=== PATIENT | male | born 1980 | race Caucasian/White ===

== ENCOUNTER 2025-05-08 20:51 | Emergency (ER) | payer OTHER, SELFPAY ==
--- NOTE | ~2025-05-08 | CT_ITS ---
CLINICAL HISTORY: rectal pain, nausea, fevers CT abdomen and pelvis with contrast Comparison: None Findings: No consolidation or effusion. The gallbladder and solid organs are within normal limits. No renal stones. No bowel obstruction, pneumoperitoneum, or pneumatosis. Pelvic contents unremarkable. Normal appendix. No acute fracture. IMPRESSION: No acute findings. This document has been electronically signed by: Sky Salazar MD on 05/09/2025 00:59:22
[2025-05-08 20:55] VITALS: BP 140/79; PULSE 110; RESP 20; TEMP 38.5; O2SAT 96; BMI 44.9
[2025-05-08] MEDS: Acetaminophen 325 MG TABLET 975 MG PO (21:07)
[2025-05-08 21:49] LABS: MANUAL DIFF FLAG NO
[2025-05-08 21:50] LABS: Basophils Absolute Auto 0.1 X10*3/uL (0.0-0.2); Basophils Percent Auto 0.4 % (0-2); Eosinophils Absolute Auto 0.2 X10*3/uL (0.0-0.4); Eosinophils Percent Auto 1.9 % (0-4); Hematocrit 36.7 % (42.0-52.0); Hemoglobin 12.8 g/dl (14.0-18.0); Imm Gran Abs Auto 0.05 X10*3/uL (0.00-0.03); Imm Gran Pct Auto 0.4 % (0.0-0.4); Lymphocytes Absolute Auto 1.5 X10*3/uL (1.2-4.9); Lymphocytes Percent Auto 12.3 % (20-40); Mean Corpuscular HGB Conc 34.9 g/dl (31.0-36.0); Mean Corpuscular Volume 83.2 fL (80.0-98.0); Monocytes Absolute Auto 0.9 X10*3/uL (0.1-1.2); Monocytes Percent Auto 7.8 % (2-11); Neutrophils Absolute Auto 9.2 x10*3/uL (2.0-8.3); Neutrophils Percent Auto 77.2 % (45-73); Platelet Count 276 X10*3/uL (160-400); Red Blood Count 4.41 X10*6/uL (4.60-5.80); Red Cell Distribution Width 12.4 % (11.0-16.0); White Blood Count 11.9 X10*3/uL (4.8-10.8)
--- NOTE | 2025-05-08 21:55 | ED.SKABFB ---
HPI - Skin/Abscess/Foreign Bdy General Chief complaint: Skin/Abscess/Foreign Body Stated complaint: fever, cyst on buttocks Time Seen by Provider: 05/08/25 21:55 Source: patient Mode of arrival: ambulatory Limitations: no limitations History of Present Illness ED Provider: arnie livingston clinical nursing manager HPI narrative: Patient is a 45-year-old male who presents emergency department for evaluation. He reports over the past 2 weeks he has been experiencing pain to his rectum, he feels a lump to the right side of the rectum that has been increasing in size. He states that for many years he has suffered from frequent soft bowel movements with intermittent dull abdominal pain and nausea. Has brought this up to his primary care doctor, he has an appointment scheduled for colonoscopy in June of 2025. However, he reports a few weeks ago he did become constipated for the very first time. He thought he may have developed a hemorrhoid so he started using hemorrhoid creams and using [id number] tucks pads without much improvement. He went to his primary care doctor's office earlier this week, denies having any visual inspection or physical examination of the area but was advised to continue taking the hemorrhoid cream. He is now experiencing fevers and increasing pain to the area. He states at times when he has wiped he has noticed a yellow drainage. Related Data Allergies Allergy/AdvReac Type Severity Reaction Status Date / Time [place] nut Allergy Cough Verified 05/08/25 21:03 lisinopril Allergy Hives Verified 05/08/25 21:03 Review of Systems Review of Systems: Yes all other systems are reviewed and are negative PMFSH Past Medical History Attestation statement: The following information was validated with the patient. Source: old records reviewed Social History Social History Smoked in Last 30 Days: No Use of substances other than those prescribed or required for medical reasons: No Advance Directives: No Advance Directives Information Provided: Yes Physical Exam Vital Signs: Vital Signs: Last Vital Signs Temp 98.8 F 05/08/25 22:38 Pulse 93 05/08/25 22:38 Resp 14 05/08/25 23:27 BP 126/70 05/09/25 01:20 Pulse Ox 97 05/08/25 22:38 O2 Del Method Room Air 05/08/25 22:38 BMI result Body Mass Index 44.9 Appearance: Alert.?Oriented to person, place and time. No acute distress.?Normal affect. Eyes: Pupils equal, round and reactive to light.? ENT: Pharynx normal.?? Neck: Normal inspection.? Neck supple.?? CVS: Heart sounds normal. Normal heart rate and rhythm.? Pulses normal.?? Respiratory: No respiratory distress.? Lung sounds clear to auscultation bilaterally?? Abdomen: Soft and non-tender. Normoactive bowel sounds. ? Rectal: Performed with public works supervisor ED RN Heidy - appreciate any hemorrhoid on examination, I do not appreciate any discrete abscess, there is tenderness upon palpation of the right perirectal region with some palpable areas of induration. Skin: Skin warm and dry.? Normal skin color.? Extremities: No lower extremity edema.? Neuro: Moves all extremities spontaneously. Sensation intact bilaterally. CN II-XII intact. No focal neuro deficits. Ambulates with normal steady gait. Course Reevaluation(s) Reevaluation #1: CT of the abdomen and pelvis without acute pathology. I did discuss this with my attending Dr. Wooten who examined the patient as well, given the area of induration I am going to treat for cellulitis, suspect that he may have previously had an abscess as he did endorse some yellow drainage from the area. Will treat with Augmentin and doxycycline. Given strict return precautions. All questions have been answered. Stable for discharge Medications Administered Discontinued Medications Generic Name Dose Route Start Last Admin Trade Name Freq PRN Reason Stop Dose Admin Acetaminophen 975 mg 05/08/25 21:05 05/08/25 21:07 Acetaminophen 325 Mg Tablet PO 05/08/25 21:06 975 mg ONCE ONE Administration Sodium Chloride 1,983 mls @ 1,983 mls/hr 05/08/25 22:04 05/09/25 01:20 Ns IV 05/08/25 23:03 Infused .Q1H STA Infusion Levofloxacin 500 mg in 100 mls @ 100 mls/hr 05/08/25 22:04 05/08/25 23:16 Levaquin IV 05/08/25 23:03 Infused ONCE ONE Infusion Metronidazole 500 mg in 100 mls @ 100 mls/hr 05/08/25 22:04 05/09/25 00:41 Flagyl IV 05/08/25 23:03 Infused ONCE ONE Infusion Iohexol 100 ml 05/09/25 00:17 05/09/25 00:18 Iohexol 350 Mg/Ml 100 Ml Infus..Btl IV 05/09/25 00:18 100 ml ONCE ONE Administration Morphine Sulfate 4 mg 05/08/25 23:18 05/08/25 23:27 Morphine Sulfate 4 Mg/Ml Cartridge IVPUSH 05/08/25 23:19 4 mg ONCE ONE Administration Protocol Ondansetron HCl 4 mg 05/08/25 23:18 05/08/25 23:27 Ondansetron Hcl 4 Mg/2 Ml Vial IVPUSH 05/08/25 23:19 4 mg ONCE ONE Administration Medical Decision Making Medical Decision Making [facility] Narrative: 21:58 I assumed care of patient at this time, sepsis alert was called secondary to fever tachycardia and suspected infection involving the rectal region. Sepsis fluid bolus ordered based on ideal body weight due to obesity, covered with levofloxacin and metronidazole in addition to acetaminophen for fever. Patient is a 45 old male with past medical history of diabetes, hypertension, sciatica presenting for evaluation of rectal pain as per HPI. At the time my evaluation there is no discrete abscess that is identified there is areas of induration and tenderness upon palpation of the perirectal region, no appreciable hemorrhoid on examination. He has a exquisite pain and tenderness. Planning on obtaining CT of the abdomen and pelvis for further evaluation. Serum labs revealing leukocytosis of 11,900, normocytic anemia that does not meet transfusion criteria, no thrombocytopenia. No electrolyte derangement. No ROEL. Non-anion gap hyperglycemia with a random glucose of 189. No lactic acidosis. LFTs are unremarkable. Differential Diagnosis Differential Diagnoses: The differential diagnosis associated with the presentation includes (perirectal abscess, colitis, prostatitis, hemorrhoid, cellulitis) Admission/Observation Consideration of admission/observation: Escalation of care including admission/observation considered Lab Data MDM Lab Attestation statement: I reviewed the patient's lab results. (See narrative above) 05/08/25 21:34 05/08/25 21:34 Labs: Lab Results 05/08/25 05/09/25 Range/Units 21:34 00:26 WBC 11.9 H (4.8-10.8) X10*3/uL RBC 4.41 L (4.60-5.80) X10*6/uL Hgb 12.8 L (14.0-18.0) g/dl Hct 36.7 L (42.0-52.0) % MCV 83.2 (80.0-98.0) fL MCH 29.0 (27.0-33.0) pg MCHC 34.9 (31.0-36.0) g/dl RDW 12.4 (11.0-16.0) % Plt Count 276 (160-400) X10*3/uL MPV 9.0 L (9.4-12.4) fL Immature Gran % (Auto) 0.4 (0.0-0.4) % Neut % (Auto) 77.2 H (45-73) % Lymph % (Auto) 12.3 L (20-40) % [place] % (Auto) 7.8 (2-11) % Eos % (Auto) 1.9 (0-4) % Baso % (Auto) 0.4 (0-2) % Lymph # (Auto) 1.5 (1.2-4.9) X10*3/uL [place] # (Auto) 0.9 (0.1-1.2) X10*3/uL Eos # (Auto) 0.2 (0.0-0.4) X10*3/uL Baso # (Auto) 0.1 (0.0-0.2) X10*3/uL Abs Immat Gran (auto) 0.05 H (0.00-0.03) X10*3/uL Absolute Neuts (auto) 9.2 H (2.0-8.3) x10*3/uL Absolute Nucleated RBC 0.000 (0.0-0.012) X10*3/uL Nucleated RBC % (auto) 0.0 (0.0-0.2) /100WBC PT 12.2 (10.9-12.4) SEC INR 1.1 (0.9-1.1) APTT 32.3 (26.0-36.8) SEC Sodium 138 (135-145) mmol/L Potassium 3.8 (3.3-5.1) mmol/L Chloride 106 (96-108) mmol/L Carbon Dioxide 24 (22-29) mmol/L Anion Gap 12 (12-20) BUN 12 (9-16) mg/dL Creatinine 0.99 (0.5-1.4) mg/dL Estim Creat Clear Calc 123.4 Estimated GFR > 60 Random Glucose 189 H (60-115) mg/dL Lactic Acid 1.5 (0.5-2.0) mmol/L Calcium 9.0 (8.4-10.2) mg/dL Total Bilirubin 0.5 (0.0-1.0) mg/dL Direct Bilirubin 0.2 (0.0-0.5) mg/dL AST 16 (5-37) U/L ALT 16 (0-40) U/L Alkaline Phosphatase 67 (39-117) U/L Total Protein 7.6 (6.5-8.0) g/dL Albumin 4.5 (3.5-5.0) g/dL Urine Color Yellow Urine Appearance Clear Urine pH 5.5 (5.0-9.0) Ur Specific [place] 1.020 (1.005-1.025) Urine Protein Negative (Neg-Trace) mg/dL Urine Glucose (UA) Negative (Negative) mg/dL Urine Ketones Negative (Negative) mg/dL Urine Blood Negative (Negative) Urine Nitrite Negative (Negative) Ur Leukocyte Esterase Negative (Negative) Radiology Impression Discussion of test interpretation with radiology: I have reviewed the radiologist's reading. Independent Historian Clinical information obtained from an independent historian. History obtained from or confirmed by: Parent External Record Review External record reviewed: Outpatient record Chronic Conditions Patient?s care impacted by: Other (See narrative above) Discharge Plan Discharge Clinical Impression: Cellulitis Patient Disposition: Home, Self-Care Instructions: Cellulitis (ED) Additional Instructions: As discussed, with a history or describing there is concern that there may have been an abscess present given the yellow drainage, you are now left with cellulitis which is an infection of the skin surrounding this area. The CT scan did not show abnormal findings. You are being discharged home with 2 prescriptions for antibiotics Augmentin as well as doxycycline. Please complete the entire course, do not skip any doses even if you begin to feel better. While taking antibiotics, please include probiotics that can be found over the counter or yogurt in your diet. If symptoms of a yeast infection or diarrhea occur, please seek evaluation. On doxycycline, do not take pills immediately before going to bed and swallow pills with plenty of water. Avoid direct sunlight, iron, antacids, and Pepto Bismol. Call your provider if you develop new ringing in your ears, new problems hearing, dizziness, difficulty swallowing, rash, abdominal discomfort, nausea, or diarrhea.? You can take ibuprofen 200 mg, 3 tablets (600mg) every 6-8 hours as needed for pain, in addition to Tylenol 500 mg, 2 tablets (1,000mg) every 4-6 hours as needed for pain, but not to exceed 3 doses daily (3,000mg).? Follow-up with your primary care doctor. Return to emergency department any new or worsening symptoms or concerns. Print Language: Ma[place]
[2025-05-08 21:56] LABS: INTERNATIONAL NORM RATIO 1.1 (0.9-1.1); Prothrombin Time 12.2 SEC (10.9-12.4)
[2025-05-08 21:58] LABS: Partial Thromboplastin Time 32.3 SEC (26.0-36.8)
[2025-05-08 22:05] LABS: Alanine Aminotransferase 16 U/L (0-40); Albumin Level 4.5 g/dL (3.5-5.0); Alkaline Phosphatase 67 U/L (39-117); Anion Gap 12 (12-20); Aspartate Amino Transferase 16 U/L (5-37); Bilirubin Direct 0.2 mg/dL (0.0-0.5); Bilirubin Total 0.5 mg/dL (0.0-1.0); Blood Urea Nitrogen 12 mg/dL (9-16); Carbon Dioxide 24 mmol/L (22-29); Chloride 106 mmol/L (96-108); Creatinine Clr Calc Pharmacy 123.4; Estimated Glomerular Filt Rate > 60; Glucose Random 189 mg/dL (60-115); Potassium 3.8 mmol/L (3.3-5.1); Sodium 138 mmol/L (135-145); Total Protein 7.6 g/dL (6.5-8.0)
[2025-05-08 22:06] LABS: Lactic Acid 1.5 mmol/L (0.5-2.0)
[2025-05-08] MEDS: levoFLOXacin/D5W 500 MG/100 ML PIGGYBACK 100 MG IV (22:11)
[2025-05-08] MEDS: 0.9 % Sodium Chloride 1,983 ML 1983 ML IV (22:11)
[2025-05-08 22:38] VITALS: BP 113/51; PULSE 93; RESP 16; TEMP 37.1; O2SAT 97
[2025-05-08] MEDS: metroNIDAZOLE/NS 500 MG/100 ML PIGGYBACK 100 MG IV (23:16)
[2025-05-08 23:27] VITALS: RESP 14
[2025-05-08] MEDS: ondansetron HCL 4 MG/2 ML VIAL IVPUSH (23:27)
[2025-05-08] MEDS: Morphine Sulfate 4 MG/ML CARTRIDGE IVPUSH (23:27)
[2025-05-09] MEDS: iohexoL 350 MG/ML 100 ML INFUS..BTL IV (00:18)
--- NOTE | 2025-05-09 00:21 | PC.NURSE ---
iv fluids continue to infuse. patient encouraged to keep arm straight as IV is in AC.
[2025-05-09 00:35] LABS: Appearance Urine Clear; Color Urine Yellow; Glucose Urine UA Negative (Negative); Leukocyte Esterase Urine Negative (Negative); Nitrite Urine Negative (Negative); PH 5.5 (5.0-9.0); Urine Blood Negative (Negative); Urine Ketones Negative (Negative); Urine Protein Negative (Neg-Trace)
[2025-05-09 01:20] VITALS: BP 126/70
[2025-05-09 01:29] VITALS: BP 124/71; PULSE 86; RESP 16; TEMP 37; O2SAT 95
[2025-05-09 01:56] VITALS: BP 124/71; PULSE 86; RESP 16; TEMP 37; O2SAT 95
== END 2025-05-09 01:58 | disposition home or self-care (01) ==
PROVIDERS: Nurse Practitioner Family; Emergency Provider Emergency Medicine
DX: K61.1 Rectal abscess (principal); R50.9 Fever, unspecified; R00.0 Tachycardia, unspecified; E11.9 Type 2 diabetes mellitus without complications; I10 Essential (primary) hypertension
CPT/HCPCS: 36415; 74177; 80048; 80076; 81003; 83605; 85025; 85610; 85730; 87040; 96361; 96374; 96375; 99284; J1836; J1956; J2270; J2405; Q9967

== ENCOUNTER → 2025-05-08 22:27 | Outpatient (BNV) | payer OTHER, SELFPAY | PROVIDERS: Emergency Provider Emergency Medicine; Visit Provider Student in an Organized Health Care Education/Training Program | DX: R50.9 Fever, unspecified (principal) | CPT/HCPCS: 74177 ==